=== PATIENT | female | born 1985 | race Caucasian/White ===

== ENCOUNTER → 2021-11-21 | Outpatient (CLI) | payer BC ==
--- NOTE | 2021-11-21 15:14 | RAD ---
XR CHEST 2V History: Reason: COUGH / Comparison: None. Findings: The cardiomediastinal silhouette is normal. Pulmonary vasculature is normal. The lungs are clear. No pleural effusion or pneumothorax is seen. There is no acute bone abnormality. There is a probable bio psy clip in the left breast. IMPRESSION: No acute cardiopulmonary process. Electronically signed by: Harvey Swift MD (11/21/2021 3:12 PM) [facility]ITALJacob
== END ==
LOC: RAD 14:57
PROVIDERS: ATTEND Nurse Practitioner Family
DX: R05.9 Cough, unspecified (principal)
CPT/HCPCS: 71046